=== PATIENT | female | born 2000 | race Caucasian/White ===

== ENCOUNTER 2024-10-23 07:30 | Emergency (ER) | payer OTHER ==
[2024-10-23 08:09] LABS: Specific Gravity 1.014 (1.005-1.030)
[2024-10-23 08:11] LABS: Specific Gravity 1.014 (1.005-1.030); Sqamous Epithelial <5 /HPF (None Seen); Urine Bacteria None Seen /HPF (<20); Urine Bilirubin NEGATIVE (Negative); Urine Blood 1+ (Negative); Urine Clarity Clear (Clear); Urine Color Light-Yellow (Yellow); Urine Culture Reflex Order NOT NEEDED; Urine Glucose NEGATIVE (Negative); Urine Ketones NEGATIVE (Negative); Urine Microscopic Reflex YN ORDER UMIC; Urine Mucus Slight /HPF (None Seen); Urine Nitrite NEGATIVE (Negative); Urine Protein NEGATIVE (Negative); Urine RBC <5 /HPF (None Seen); Urine Urobilinogen Normal (Normal); Urine WBC <5 /HPF (<5); Urine pH 6.5 (5.0-7.0)
--- NOTE | 2024-10-23 08:37 | RAD REPORT ---
EXAM: Transvaginal OB HISTORY: Abd cramping, ;Vaginal bleeding COMPARISON: None TECHNIQUE: Multiple grayscale and color Doppler images were obtained in a transvaginal pelvic ultraso und. Spectral analysis of the Doppler waveforms of the ovaries were performed. FINDINGS: UTERUS: There is an intrauterine gestational sac. This contains a yolk sac and pole. The gestat ional sac measures 2.8 cm. Annada-rump length: 0.5 cm which estimates gestational age at 7 week 0 day. No heart tones identified. No evidence of subchorionic hemorrhage. Mild free fluid is seen in the pelvis. RIGHT OVARY: Normal flow without focal mass. LEFT OVARY: Normal flow without focal mass. IMPRESSION: IUP identified with pole but no heart tones identified. This is suspicious for, but not diagnos tic of, failed . Recommend short-term ultrasound follow-up.
[2024-10-23 08:42] LABS: Absolute Eosinophils 0.1 K/uL (0-0.5); Absolute Lymphocytes (CBC) 1.7 K/uL (0.7-4.9); Absolute Monocytes 0.7 K/uL (0.1-1.3); Absolute Neutrophil 5.6 K/uL (1.8-8.0); Basophils % 0.3 % (0-1.3); Eosinophils % 0.9 % (0-4.4); Hematocrit 41.3 % (36.0-45.0); Hemoglobin 13.3 g/dL (12.0-15.0); Lymphocytes % 20.8 % (15.3-44.8); MCH 30.5 pg (27.0-35.0); MCHC 32.3 g/dL (32.0-36.0); MCV 94.5 fL (80-100); Monocytes % 8.1 % (3.3-12.3); Neutrophils % 69.9 % (41.7-73.7); Platelets 266 thou/uL (152-406); RBC Red Blood Cell Count 4.37 M/uL (3.86-4.86)
[2024-10-23 08:54] LABS: Anion Gap 7.7 mEq/L (5.0-15.0); Potassium 3.7 mEq/L (3.5-5.1)
--- NOTE | 2024-10-23 09:23 | ER ---
Nurse's Notes [facility] Name: Remy Miller Age: 24 yrs Sex: Female : 2000 Arrival Date: 10/23/2024 Time: 07:30 Bed 8 Private MD: Diagnosis: Abnormal uterine and vaginal bleeding, unspecified;Threatened Presentation: 10/23 07:36 Chief complaint: Patient states: vaginal bleeding that began as spotting yesterday and aa5 today "it's more red and with some clots". Pt also reports lower abd cramping, also reports diarrhea and nausea today, denies vomiting. 07:36 Coronavirus screen: diarrhea. Ebola Screen: Patient denies travel to an Ebola-affected [facility] area in the 21 days before illness onset. 07:36 Method Of Arrival: Ambulatory aa5 07:53 Initial Sepsis Screen: Does the patient meet any 2 criteria? No. Patient's initial aa5 sepsis screen is negative. Does the patient have a suspected source of infection? No. Patient's initial sepsis screen is negative. Risk Assessment: Do you want to hurt yourself or someone else? Patient reports no desire to harm self or others. Onset of symptoms was October 22, 2024. 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 - Infectious Disease History:: Denies. - Social history:: Smoking status: Patient denies any tobacco usage or history of. - Family history:: not pertinent. - Hospitalizations: : No recent hospitalization is reported. Screenin:40 [facility] ED Fall Risk Assessment (Adult) History of falling in the last 3 months, aa5 including since admission No falls in past 3 months (0 pts) Confusion or Disorientation No (0 pts) Intoxicated or Sedated No (0 pts) Impaired Gait No (0 pts) Mobility Assist Device Used No (0 pt) Altered Elimination No (0 pt) Score/Fall Risk Level 0 - 2 = Low Risk Oriented to surroundings, Maintained a safe environment, Educated pt \\T\\ family on fall prevention, incl call for assistance when getting out of bed. Abuse screen: Denies threats or abuse. Nutritional screening: No deficits noted. Tuberculosis screening: No symptoms or risk factors identified. Assessment: 07:36 General: Appears comfortable, Behavior is calm, cooperative. Pain: Complains of pain in aa5 right lower quadrant and left lower quadrant Quality of pain is described as crampy, Pain began 1 day ago. Is intermittent. Neuro: Level of Consciousness is awake, alert, obeys commands, Oriented to person, place, time, situation. Cardiovascular: Patient's skin is warm and dry. Respiratory: Airway is patent Respiratory effort is even, unlabored, Respiratory pattern is regular, symmetrical. GI: Abdomen is round non-distended, Bowel sounds present X 4 quads. Abd is soft and non tender X 4 quads. Reports diarrhea, nausea, Patient currently denies vomiting. : Reports vaginal bleeding that is bright red, with clots, moderate flow, today, and yesterday spotting that was pinkish. Denies burning with urination. EENT: No signs and/or symptoms were reported regarding the EENT system. Derm: Skin is pink, warm \\T\\ dry. Musculoskeletal: Range of motion: intact in all extremities. 08:19 Reassessment: Pt back from US . aa5 08:20 Reassessment: Patient is alert, oriented x 3, equal unlabored respirations, skin aa5 warm/dry/pink. 08:47 Reassessment: Patient is alert, oriented x 3, equal unlabored respirations, skin aa5 warm/dry/pink. Pt sitting up in bed, pt's significant other at bedside. . 09:30 Reassessment: Patient is alert, oriented x 3, equal unlabored respirations, skin aa5 warm/dry/pink. Vital Signs: 07:36 BP 115 / 75; Pulse 77; Resp 16 S; Temp 98.4(O); Pulse Ox 100% on R/A; Weight 70.31 kg aa5 (R); Height 5 ft. 4 in. (R); 08:47 BP 106 / 62; Pulse 60; Resp 16 S; Pulse Ox 100% on R/A; aa5 09:30 BP 109 / 64; Pulse 60; Resp 18 S; Pulse Ox 99% on R/A; aa5 07:36 Body Mass Index 26.61 (70.31 kg, 162.56 cm) aa5 ED Course: 07:36 Patient arrived in ED. sj2 07:36 Arm band placed on Patient placed in an exam room, on a stretcher. aa5 07:36 Patient has correct armband on for positive identification. Placed in gown. Bed in low aa5 position. Call light in reach. Side rails up X 1. Adult w/ patient. 07:38 Byron Schwartz MD is Attending Physician. rn 07:48 Uma Butler, ALEXEY is Primary Nurse. aa5 07:53 Triage completed. aa5 08:20 Initial lab(s) drawn, by me, sent to lab. Inserted saline lock: 22 gauge in right aa5 antecubital area, using aseptic technique. Blood collected. Flushed with 10 mL NS. 08:23 US Transvaginal Ob In Process Unspecified. EDMS 09:30 IV discontinued, intact, bleeding controlled, No redness/swelling at site. Pressure aa5 dressing applied. 09:30 No provider procedures requiring assistance completed. aa5 Administered Medications: No medications were administered Medication: 09:35 VIS not applicable for this client. aa5 Outcome: 09:23 Discharge ordered by . rn 09:33 Discharged to home ambulatory, with significant other, aa5 09:33 Condition: stable 09:33 Discharge instructions given to patient, Instructed on discharge instructions, follow up and referral plans. Demonstrated understanding of instructions, follow-up care, 09:37 Patient left the ED. ph Signatures: Dispatcher [employer] EDNC Byron Schwartz MD MD rn Calderon, Audri, RN RN aa Priscilla Moser RN RN ph Nafisa Courtney sj2 Corrections: (The following items were deleted from the chart) 08:27 07:36 Chief complaint: Patient states: vaginal bleeding that began as spotting aa5 yesterday and today "it' more red and with some clots". Pt also reports lower abd cramping, also reports diarrhea and nausea today, denies vomiting. aa5
--- NOTE | 2024-10-23 09:23 | EDPHYS ---
Physician Documentation [facility] Name: Remy Miller Age: 24 yrs Sex: Female : 2000 Arrival Date: 10/23/2024 Time: 07:30 Bed 8 Private MD: ED Physician Byron Schwartz HPI: 10/23 07:51 This 24 yrs old Female presents to ER via Unassigned with complaints of Vaginal rn Bleeding, + Preg <12wks. 07:51 The patient presents to the emergency department with abdominal pain, vaginal bleeding, rn that is light, with clots. The estimated gestational age is 9 weeks. course: care: private OB physician. Previous pregnancies: the patient has never been . The patient has not experienced similar symptoms in the past. Patient is G1, P0 at approximately 9 weeks by dates who presents with lower abdominal cramping and vaginal bleeding, passing clots. No trauma. No urinary symptoms. Is never happened before.. 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 - Infectious Disease History:: Denies. - Social history:: Smoking status: Patient denies any tobacco usage or history of. - Family history:: not pertinent. - Hospitalizations: : No recent hospitalization is reported. ROS: 07:51 Constitutional: Negative for fever, chills, and weight loss, Abdomen/GI: Positive for rn lower abdominal cramping and diarrhea : Positive for vaginal bleeding Exam: 07:51 Constitutional: This is a well developed, well nourished patient who is awake, alert, rn and in no acute distress. Patient ambulatory to room without assistance or difficulty Cardiovascular: Regular rate and rhythm. No pulse deficits. Respiratory: No increased work of breathing, no retractions or nasal flaring. Abdomen/GI: Soft, non-tender, no distention, no peritoneal signs Neuro: Awake and alert, GCS 15 Vital Signs: 07:36 BP 115 / 75; Pulse 77; Resp 16 S; Temp 98.4(O); Pulse Ox 100% on R/A; Weight 70.31 kg aa5 (R); Height 5 ft. 4 in. (R); 08:47 BP 106 / 62; Pulse 60; Resp 16 S; Pulse Ox 100% on R/A; aa5 09:30 BP 109 / 64; Pulse 60; Resp 18 S; Pulse Ox 99% on R/A; aa5 07:36 Body Mass Index 26.61 (70.31 kg, 162.56 cm) aa5 MDM: 07:38 Medical Screening Exam initiated rn 09:20 Differential diagnosis: Data reviewed: vital signs, nurses notes, lab test result(s), rn radiologic studies, ultrasound, and as a result, I will discharge patient. Counseling: I had a detailed discussion with the patient and/or guardian regarding the historical points, exam findings, and any diagnostic results supporting the discharge/admit diagnosis, lab results, radiology results, the need for outpatient follow up, to return to the emergency department if symptoms worsen or persist or if there are any questions or concerns that arise at home. Special discussion: I discussed with the patient/guardian in detail that at this point there is no indication for admission to the hospital. It is understood, however, that if the symptoms persist or worsen the patient needs to return immediately for re-evaluation. Based on the history and exam findings, there is no indication for further emergent testing or inpatient evaluation. I discussed with the patient/guardian the need to see the OB Gyne specialist for further evaluation of the symptoms. ED course: Beta-hCG 39,000, ultrasound shows intrauterine with pole but no heart tones. Patient reports previous ultrasound with heart tones. Most likely spontaneous . Patient has follow-up appointment with her OB doctor, given results of ultrasound and blood so that she can get repeat beta with her OB. Return precautions given and understood. At this time will not prescribe any medication or intervene otherwise as patient most likely having uncomplicated spontaneous . Rh+ so does not require RhoGAM. 10/23 07:49 Order name: Abo/rh Typing; Complete Time: 09:13 rn 10/23 07:49 Order name: Basic Metabolic Panel; Complete Time: 09:13 rn 10/23 07:49 Order name: CBC with Diff; Complete Time: 09:13 rn 10/23 07:49 Order name: Test, Urine; Complete Time: 08:39 rn 10/23 07:49 Order name: Quantitative Hcg; Complete Time: 09:13 rn 10/23 07:49 Order name: Urinalysis w/ reflexes; Complete Time: 08:39 rn 10/23 07:49 Order name: US Transvaginal Ob; Complete Time: 08:39 rn 10/23 07:49 Order name: IV Saline Lock; Complete Time: 08:25 rn 10/23 07:49 Order name: Labs collected and sent; Complete Time: 08:25 rn 10/23 07:49 Order name: NPO; Complete Time: 07:51 rn Administered Medications: No medications were administered Disposition Summary: 10/23/24 09:23 Discharge Ordered Notes: Location: Home rn Problem: new rn Symptoms: have improved rn Condition: Stable rn Diagnosis - Abnormal uterine and vaginal bleeding, unspecified rn - Threatened rn Followup: rn - With: Private Physician - When: As needed - Reason: Recheck today's complaints, Re-evaluation by your physician Discharge Instructions: - Discharge Summary Sheet rn - Threatened Miscarriage rn - Vaginal Bleeding During , First Trimester rn Forms: - Medication Reconciliation Form rn - Antibiotic internal affairs investigator - Prescription Opioid Use rn - Patient Portal Instructions rn - Leadership Thank You Letter rn Signatures: Dispatcher [employer] Byron Puente MD MD rn Calderon, Audri RN RN aa5 Corrections: (The following items were deleted from the chart) 07:49 07:49 ABO/RH TYPING+BB.LAB.BRZ ordered. EDMS EDMS 07:49 07:49 BASIC METABOLIC PANEL+C.LAB.BRZ ordered. EDMS EDMS 07:49 07:49 CBC+H.LAB.BRZ ordered. EDMS EDMS 07:49 07:49 Test, Urine+UC.LAB.BRZ ordered. EDMS EDMS 07:49 07:49 QUANTITATIVE HCG+C.LAB.BRZ ordered. EDMS EDMS 07:49 07:49 Urinalysis+U.LAB.BRZ ordered. EDMS EDMS 07:49 07:49 Transvaginal Ob+US.RAD.BRZ ordered. EDMS EDMS
[2024-10-23 09:41] VITALS: TEMP 98.4; O2SAT 100
[2024-10-23 09:43] VITALS: BP 106/62
== END 2024-10-23 09:37 | disposition home or self-care (01) ==
LOC: ER 07:30
DX: O20.0 Threatened abortion (principal); Z3A.09 9 weeks gestation of pregnancy
CPT/HCPCS: 36415; 76817; 80048; 81001; 81025; 84702; 85025; 86900; 86901; 99284